=== PATIENT | female | born 1935 | race Caucasian/White ===

== ENCOUNTER 2016-06-06 08:51 | Inpatient (IN) | payer MEDICARE ==
[~2016-06-06] VITALS: Ht 157.5 cm; Wt 72.3 kg
[~2016-06-06 08:51] MED LIST: ATRV10T; FOLI1TAB7; HCTZ12.5T; LSNP20T; LVT.05T PO; ROSU5TAB; SIMVASTATIN; VYTORIN; lotrel
[2016-06-06] MEDS ORDERED: NS IV 500 ML 500 ML IV ONE (09:06)
[2016-06-06] MEDS ORDERED: fentaNYL INJECTION 100 MCG/2 ML AMP IVP STA (09:15)
[2016-06-06 09:20] LABS: BASOPHILS % (AUTO) 0 % (0-10); EOSINOPHILS % (AUTO) 0 % (0-10); LYMPHOCYTES # (AUTO) 0.8 X 10^3 (1.0-4.0); LYMPHOCYTES % (AUTO) 7 % (12-44); MEAN CORPUSCULAR HEMOGLOBIN 30 PG (25-34); MEAN CORPUSCULAR HGB CONC 34 G/DL (32-36); MEAN CORPUSCULAR VOLUME 90 FL (80-99); MEAN PLATELET VOLUME 9.3 FL (7.4-10.4); MONOCYTES # (AUTO) 0.5 X 10^3 (0.0-1.0); MONOCYTES % (AUTO) 5 % (0-12); NEUTROPHILS # (AUTO) 10.3 X 10^3 (1.8-7.8); NEUTROPHILS % (AUTO) 89 % (42-75); PLATELET COUNT 271 10^3/uL (130-400); RED CELL DISTRIBUTION WIDTH 14.3 % (10.0-14.5); WHITE BLOOD COUNT 11.5 10^3/uL (4.3-11.0)
[2016-06-06 09:40] LABS: ALBUMIN 4.3 G/DL (3.2-4.5); BILIRUBIN,TOTAL 0.6 MG/DL (0.1-1.0); CALCIUM 10.5 MG/DL (8.5-10.1); CREATININE SERUM 0.92 MG/DL (0.60-1.30); POTASSIUM 3.5 MMOL/L (3.6-5.0); TOTAL PROTEIN 7.4 G/DL (6.4-8.2); hs C REACTIVE PROTEIN 3.37 MG/DL (0.00-0.50)
--- NOTE | 2016-06-06 09:44 | ED Abdominal Pain ---
General Chief Complaint: Abdominal/GI Problems Stated Complaint: CONSTIPATION Nursing Triage Note: STATES HER LAST NORMAL BM WAS SUNDAY ET TOOK MILK OF MAG LAST NIGHT WITH NO RESULTS. HX OF BOWEL OBSTRUCTION. Sepsis Screen: No Definite Risk Source of Information: Patient Exam Limitations: No Limitations History of Present Illness Time Seen By Provider: 09:00 Initial Comments Here with report of overall abdominal pain and constipation. Reports last bowel movement was 2 days ago and was normal. Does have history of bowel obstruction and this has concerned her. She took milk of magnesia last night and that did not help. Today she has increasing abdominal discomfort and cramping without bowel movement. She vomited yesterday and this morning. Denies fever or chills. Denies breathing problems or other concerns. Timing/Duration: 2-3 Days Severity/Quality: Moderate, Cramping Location: Generalized Abdomen Radiation: No Radiation Modifying Factors: Worsens With Eating, Worsens With Movement, Improves With Resting Associated Symptoms: No Back Pain, No Chest Pain, No Fever/Chills, Nausea/ Vomiting, No Shortness of Air, No Weakness Allergies and Home Medications Allergies Coded Allergies: No Known Drug Allergies (Unverified , 05/22/06) Home Medications Folic Acid/Multivits-Min/Lut 1 Each Tab.chew, (Reported) Hydrochlorothiazide 12.5 Mg Capsule, (Reported) Levothyroxine Sodium 50 Mcg Tablet, (Reported) Lisinopril 20 Mg Tablet, (Reported) Rosuvastatin Calcium 5 Mg Tablet, (Reported) Review of Systems Constitutional: see HPI, No chills, No fever EENTM: No Symptoms Reported Respiratory: No Symptoms Reported Cardiovascular: No Symptoms Reported, Denies Chest Pain, Denies Edema Gastrointestinal: Abdominal Pain, Constipated, Nausea, Denies Rectal Bleeding, Vomiting Genitourinary: No Symptoms Reported, Denies Frequency, Denies Pain Musculoskeletal: no symptoms reported Skin: no symptoms reported Psychiatric/Neurological: No Symptoms Reported All Other Systems Reviewed Negative Unless Noted: Yes Past Wletqyh-Vrjqgf-Bueiav Hx Patient Social History Alcohol Use: Denies Use Recreational Drug Use: No Smoking Status: Never a Smoker Recent Foreign Travel: No Contact w/Someone Who Travel: No Recent Infectious Disease Expo: No Surgeries HX Surgeries: Yes Surgeries: Abdominal, Hysterectomy Respiratory Hx Respiratory Disorders: No Cardiovascular Hx Cardiac Disorders: Yes Cardiac Disorders: Hypertension Neurological Hx Neurological Disorders: No Reproductive System Hx Reproductive Disorders: No Sexually Transmitted Disease: No Genitourinary Hx Genitourinary Disorders: Yes Gastrointestinal Hx Gastrointestinal Disorders: Yes Gastrointestinal Disorders: Obstructive Bowel Musculoskeletal Hx Musculoskeletal Disorders: No Endocrine Hx Endocrine Disorders: Yes Endocrine Disorders: Hypothyroidsim HEENT HX ENT Disorders: No Psychosocial Hx Psychiatric Problems: No Blood Transfusions Hx Blood Disorders: No Reviewed Nursing Assessment Reviewed/Agree w Nursing PMH: Yes Family Medical History Significant Family History: No Pertinent Family Hx Physical Exam Vital Signs VS - Last 72 Hours, by Label 06/06/16 08:57 Temp 98.6 Pulse 92 Resp 16 B/P (MAP) 188/76 Pulse Ox 94 Capillary Refill : Less Than 3 Seconds General Appearance: WD/WN, no apparent distress HEENT: PERRL/EOMI, pharynx normal Neck: full range of motion, supple Respiratory: lungs clear, normal breath sounds Cardiovascular: normal peripheral pulses, regular rate, rhythm, no murmur Gastrointestinal: distended, No guarding, No rebound, tenderness (diffuse) Extremities: non-tender, normal inspection Back: normal inspection, no CVA tenderness, no vertebral tenderness Neurologic/Psychiatric: alert, oriented x 3 Skin: normal color, warm/dry Progress/Results/Core Measures Results/Orders Lab Results Laboratory Tests Test 06/06/16 09:13 06/06/16 10:05 Range/Units White Blood Count 11.5 H 4.3-11.0 10^3/uL Red Blood Count 5.10 4.35-5.85 10^6/uL Hemoglobin 15.5 11.5-16.0 G/DL Hematocrit 46 35-52 % Mean Corpuscular Volume 90 80-99 FL Mean Corpuscular Hemoglobin 30 25-34 PG Mean Corpuscular Hemoglobin Concent 34 32-36 G/DL Red Cell Distribution Width 14.3 10.0-14.5 % Platelet Count 271 130-400 10^3/uL Mean Platelet Volume 9.3 7.4-10.4 FL Neutrophils (%) (Auto) 89 H 42-75 % Lymphocytes (%) (Auto) 7 L 12-44 % Monocytes (%) (Auto) 5 0-12 % Eosinophils (%) (Auto) 0 0-10 % Basophils (%) (Auto) 0 0-10 % Neutrophils # (Auto) 10.3 H 1.8-7.8 X 10^3 Lymphocytes # (Auto) 0.8 L 1.0-4.0 X 10^3 Monocytes # (Auto) 0.5 0.0-1.0 X 10^3 Eosinophils # (Auto) 0.0 0.0-0.3 10^3/uL Basophils # (Auto) 0.0 0.0-0.1 10^3/uL Neutrophils % (Manual) 88 % Lymphocytes % (Manual) 8 % Monocytes % (Manual) 4 % Eosinophils % (Manual) 0 % Basophils % (Manual) 0 % Band Neutrophils 0 % Blood Morphology Comment NORMAL Sodium Level 138 135-145 MMOL/L Potassium Level 3.5 L 3.6-5.0 MMOL/L Chloride Level 95 L 98-107 MMOL/L Carbon Dioxide Level 30 21-32 MMOL/L Anion Gap 13 5-14 MMOL/L Blood Urea Nitrogen 19 H 7-18 MG/DL Creatinine 0.92 0.60-1.30 MG/DL Estimat Glomerular Filtration Rate 59 BUN/Creatinine Ratio 21 Glucose Level 160 H 70-105 MG/DL Calcium Level 10.5 H 8.5-10.1 MG/DL Total Bilirubin 0.6 0.1-1.0 MG/DL Aspartate Amino Transf (AST/SGOT) 19 5-34 U/L Alanine Aminotransferase (ALT/SGPT) 23 0-55 U/L Alkaline Phosphatase 49 40-136 U/L C-Reactive Protein High Sensitivity 3.37 H 0.00-0.50 MG/DL Total Protein 7.4 6.4-8.2 G/DL Albumin 4.3 3.2-4.5 G/DL Urine Color YELLOW Urine Clarity CLEAR Urine pH 7 5-9 Urine Specific [place] 1.010 L 1.016-1.022 Urine Protein 1+ H NEGATIVE Urine Glucose (UA) NEGATIVE NEGATIVE Urine Ketones NEGATIVE NEGATIVE Urine Nitrite NEGATIVE NEGATIVE Urine Bilirubin NEGATIVE NEGATIVE Urine Urobilinogen NORMAL NORMAL MG/DL Urine Leukocyte Esterase NEGATIVE NEGATIVE Urine RBC (Auto) NEGATIVE NEGATIVE Urine RBC NONE /HPF Urine WBC NONE /HPF Urine Crystals PRESENT H /LPF Urine Amorphous Sediment LARGE KATY PHOSPHATE H /LPF Urine Bacteria NEGATIVE /HPF Urine Casts NONE /LPF Urine Mucus NEGATIVE /LPF Urine Culture Indicated NO My Orders Orders - JOSEPHINE CALIXTO MD Cbc With Automated Diff (06/06/16 09:06) Comprehensive Metabolic Panel (06/06/16 09:06) Hs C Reactive Protein (06/06/16 09:06) Saline Lock/Iv-Start (06/06/16 09:06) Ns Iv 500 Ml (Sodium Chloride 0.9%) (06/06/16 09:06) Fentanyl Injection (Sublimaze Injection (06/06/16 09:15) Manual Differential (06/06/16 09:13) Ct Abdomen/Pelvis W (06/06/16 09:52) Ua Culture If Indicated (06/06/16 09:53) Iohexol Injection (Omnipaque 350 Mg/Ml 1 (06/06/16 10:15) Sodium Chloride Flush (Catheter Flush Sy (06/06/16 10:15) Medications Given in ED Current Medications Medications Dose Ordered Sig/Silvia Route Start Time Stop Time Status Last Admin Dose Admin Iohexol 100 ml ONCE ONCE IV 06/06/16 10:15 06/06/16 10:16 DC 06/06/16 10:13 100 ML Sodium Chloride 10 ml NEEDED PRN IV 06/06/16 10:15 06/06/16 10:13 10 ML Sodium Chloride 500 ml @ 0 mls/hr Q0M ONCE IV 06/06/16 09:06 06/06/16 09:07 DC 06/06/16 09:17 500 MLS/HR Vital Signs/I&O Vital Sign - Last 12Hours 06/06/16 08:57 Temp 98.6 Pulse 92 Resp 16 B/P (MAP) 188/76 Pulse Ox 94 Blood Pressure Mean: 113 Progress Note : Progress Note Seen and evaluated. IV, labs, normal saline [address] abdomen and pelvis. Patient does have history of diverticulitis as well. Patient didn't give fentanyl 50 g IV for pain. Normal saline complete. CT done. I did discuss the case with radiologist and she does appear to have a small bowel obstruction with transition point in the mid pelvis area. I did discuss the case with Dr. Singh at 1105. 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 I did discuss the case with Dr. Hill 1111 and he accepts patient for admission, inpatient status as primary. Patient informed and agrees with plan. Currently not vomiting so we will forego NG tube placement at this time but patient was informed that if vomiting occurs or persist, she will need this. She agrees. Diagnostic Imaging Diagonstic Imaging: CT Plain Films/CT/US/NM/MRI: abdomen, pelvis Comments Small bowel obstruction with transition point in the mid pelvis. Reviewed: Reviewed by Me, Discussed w/Radiologist Departure Communication Time/Spoke to Admitting Phy: 11:11 Time/Spoke to Consulting Physi: 11:05 Impression Impression: Primary Impression: Small bowel obstruction Disposition: ADMITTED INPATIENT Condition: Stable Decision to Admit Reason: Admit from ER (General) Decision to Admit/Date: June 06, 2016 Time/Decision to Admit Time: 11:05 Departure-Patient Inst. Referrals: RAINER HILL DO (PCP/Family) Primary Care Physician JOSEPHINE CALIXTO MD June 06, 2016 09:44
[2016-06-06 09:48] LABS: BAND NEUTROPHILS 0 %; BASOPHILS % (MANUAL) 0 %; EOSINOPHILS % (MANUAL) 0 %; LYMPHOCYTES % (MANUAL) 8 %; NEUTROPHILS % (MANUAL) 88 %
[2016-06-06] MEDS ORDERED: IOHEXOL 350 MG/ML 100 ML (OMNIPAQUE 350) VIAL IV ONE (10:15)
[2016-06-06] MEDS ORDERED: CATHETER FLUSH 10 ML SYR IV PRN ×2 (10:15→12:15)
[2016-06-06 10:17] LABS: BILIRUBIN,URINE NEGATIVE (NEGATIVE); KETONES,URINE NEGATIVE (NEGATIVE); LEUKOCYTE ESTERASE ,URINE NEGATIVE (NEGATIVE); NITRITE,URINE NEGATIVE (NEGATIVE); PH,URINE 7 (5-9); PROTEIN,URINE 1+ (NEGATIVE); UROBILINOGEN,URINE NORMAL (NORMAL)
--- NOTE | 2016-06-06 11:36 | Diagnostic Imaging Report ---
PROCEDURE: CT abdomen and pelvis with contrast. TECHNIQUE: Multiple contiguous axial images were obtained through the abdomen and pelvis after administration of intravenous contrast. INDICATION: Abdominal pain. Nausea and vomiting. CONTRAST: 100 mL of Omnipaque 350 is administered intravenously. FINDINGS: There are dilated bowel loops with air-fluid levels seen with transition point in the upper aspect of the pelvis into decompressed distal ileal loops, compatible with high grade small bowel obstruction. There is diverticulosis most prominent in the sigmoid colon with no evidence of diverticulitis. No significant free fluid is seen. There is a small amount of fluid density superior to the urinary bladder, could be within a bowel loop or representing a small fluid collection without an air-fluid level or thickened enhancing wall to suggest an abscess. The abdominal aorta is normal in caliber. No para-aortic significantly enlarged lymph node is seen. No pelvic lymphadenopathy is seen. There is a laxity of the abdominal wall and evidence of prior hernia repair with a mesh. There is a bulging from diastases of the recti and weakness of the abdominal wall anteriorly with no discrete hernia. The kidneys have symmetric enhancement and contrast excretion. There is no hydronephrosis. There is a simple appearing cyst in the left kidney measuring 5.4 cm in caliber. The right adrenal gland demonstrates a nodule measuring 2.8 x 1.4 cm similar to 2010 exam compatible with an adenoma. Minimal nodularity in the rest of the right adrenal nodule and the left adrenal nodule is also seen which also appears stable. There is no splenomegaly. The liver, the gallbladder, the pancreas appear unremarkable. The lung bases demonstrate no significant abnormality. Osseous structures demonstrate advanced degenerative changes. IMPRESSION: 1. High-grade distal small bowel obstruction. 2. Diverticulosis. No diverticulitis. 2. Minimal fluid density seen superior to the urinary bladder with no air-fluid level or wall thickening to suggest an abscess. The findings were discussed with Dr. Santillan by Dr. Healy at time of dictation. Dictated by: Dictated on workstation # [id number]
[2016-06-06 12:00] VITALS: BP 169/71
[2016-06-06] MEDS ORDERED: ONDANSETRON 4 MG/2 ML (SDV) Z0FRAN IV PRN (12:15)
[2016-06-06] MEDS: NS IV 1000 ML 1,000 ML IV SCH ×2 (12:17→23:03)
[2016-06-06] MEDS ORDERED: FA/M1TAB29 PO (13:07)
[2016-06-06] MEDS ORDERED: CHOL10007 PO (13:07)
[2016-06-06] MEDS ORDERED: TRIA15CR TP (13:07)
[2016-06-06] MEDS ORDERED: AMLO5TAB2 PO (13:07)
[2016-06-06] MEDS ORDERED: OMEG-109 PO (13:07)
[2016-06-06] MEDS ORDERED: ATOR10TA66 PO (13:07)
[2016-06-06] MEDS ORDERED: MAGN250T PO (13:07)
[2016-06-06] MEDS ORDERED: LISI1TAB8 PO (13:07)
--- NOTE | 2016-06-06 13:49 | Consultation ---
History of Present Illness History of Present Illness Patient Consulted On(jovana/time) 06/06/16 13:44 Date of Admission History of Present Illness This is an 80-year-old female patient who came into the ER this morning with abdominal pain. Patient reports that she had a good bowel movement Sunday evening but by Sunday night she started having pain to her abdomen. Patient reports that she felt constipated Sunday morning and passed some small really hard stool. She is complaining of soreness in her abdomen. She thinks it is due to straining on Sunday to pass stool. Patient reports that she forced herself to throw up on Sunday thinking that it will help the pain but it did not. Patient states ended up calling her brother and [id number] this morning to come and take her to the emergency room. Patient reports she has a history of 3 hernia repairs, the last one taken place in [id number]. Patient also reports that she has had a total hysterectomy in the past. Per ER report patient has a history of a bowel obstruction. Allergies and Home Medications Allergies Coded Allergies: No Known Drug Allergies (Unverified , 05/22/06) Home Medications Amlodipine Besylate 5 Mg Tablet, 5 MG PO DAILY, (Reported) Atorvastatin Calcium 10 Mg Tablet, 10 MG PO HS, (Reported) Cholecalciferol (Vitamin D3) 1,000 Unit Capsule, 1,000 UNIT PO DAILY, (Reported) Levothyroxine Sodium 50 Mcg Tablet, 50 MCG PO DAILY, (Reported) Lisinopril/Hydrochlorothiazide 1 Each Tablet, 1 TAB PO DAILY, (Reported) Magnesium 250 Mg Tablet, 250 MG PO DAILY, (Reported) Multivit-Min/FA/Lycopene/Lut 1 Each Tablet, 1 TAB PO DAILY, (Reported) [place]-3 Fatty Acids/Fish Oil 1 Each Capsule, 1,200 MG PO DAILY, (Reported) Triamcinolone Acetonide 15 Gm Cream..g., TP TID PRN for RASH, (Reported) Past Uyahrfz-Dthiyu-Stnuzs Hx Patient Social History Alcohol Use: Denies Use Recreational Drug Use: No Smoking Status: Never a Smoker Recent Foreign Travel: No Contact w/Someone Who Travel: No Recent Infectious Disease Expo: No Recent Hopitalizations: Yes Physical Abuse Screen: No Sexual Abuse: No Immunizations Up To Date PED Vaccines UTD: Yes Seasonal Allergies Seasonal Allergies: No Surgeries HX Surgeries: Yes Surgeries: Abdominal, Hysterectomy Respiratory Hx Respiratory Disorders: No Cardiovascular Hx Cardiac Disorders: Yes Cardiac Disorders: Hypertension Neurological Hx Neurological Disorders: No Reproductive System Hx Reproductive Disorders: No Sexually Transmitted Disease: No HIV/AIDS: No Female Reproductive Disorders: Denies Genitourinary Hx Genitourinary Disorders: Yes Gastrointestinal Hx Gastrointestinal Disorders: Yes Gastrointestinal Disorders: Obstructive Bowel, Diverticulosis Musculoskeletal Hx Musculoskeletal Disorders: No Endocrine Hx Endocrine Disorders: Yes Endocrine Disorders: Hypothyroidsim HEENT HX ENT Disorders: No HEENT Disorders: Cataract Loss of Vision: Denies Hearing Impairment: Denies Psychosocial Hx Psychiatric Problems: No Blood Transfusions Hx Blood Disorders: No Reviewed Nursing Assessment Reviewed/Agree w Nursing PMH: Yes Family Medical History Significant Family History: No Pertinent Family Hx Family Medial History: Abdominal aortic aneurysm 19 FATHER Arthritis G8 BROTHER Cataracts G8 BROTHER Coronary thrombosis 19 MOTHER Hypercholesterolemia G8 BROTHER Hypertension G8 BROTHER Review of Systems-General Constitutional: no symptoms reported EENTM: no symptoms reported Respiratory: no symptoms reported Cardiovascular: no symptoms reported Gastrointestinal: abdominal pain (generalized abd pain with soreness), constipation Genitourinary: no symptoms reported Musculoskeletal: no symptoms reported Skin: no symptoms reported Psychiatric/Neurological: No Symptoms Reported Physical Exam-General Problems Physical Exam Vital Signs Vital Sign - Last 12Hours 06/06/16 06/06/16 08:57 12:00 Temp 98.6 Pulse 92 Resp 16 B/P (MAP) 188/76 Pulse Ox 94 O2 Delivery Room Air Capillary Refill : Less Than 3 Seconds General Appearance: WD/WN, no apparent distress Neck: non-tender, full range of motion Respiratory: chest non-tender, no respiratory distress, no accessory muscle use Cardiovascular: regular rate, rhythm Gastrointestinal: tenderness Extremities: no pedal edema, no calf tenderness Neurologic/Psychiatric: alert, normal mood/affect, oriented x 3 Skin: normal color, warm/dry Data Review Labs Laboratory Tests Test 06/06/16 09:13 06/06/16 10:05 Range/Units White Blood Count 11.5 H 4.3-11.0 10^3/uL Red Blood Count 5.10 4.35-5.85 10^6/uL Hemoglobin 15.5 11.5-16.0 G/DL Hematocrit 46 35-52 % Mean Corpuscular Volume 90 80-99 FL Mean Corpuscular Hemoglobin 30 25-34 PG Mean Corpuscular Hemoglobin Concent 34 32-36 G/DL Red Cell Distribution Width 14.3 10.0-14.5 % Platelet Count 271 130-400 10^3/uL Mean Platelet Volume 9.3 7.4-10.4 FL Neutrophils (%) (Auto) 89 H 42-75 % Lymphocytes (%) (Auto) 7 L 12-44 % Monocytes (%) (Auto) 5 0-12 % Eosinophils (%) (Auto) 0 0-10 % Basophils (%) (Auto) 0 0-10 % Neutrophils # (Auto) 10.3 H 1.8-7.8 X 10^3 Lymphocytes # (Auto) 0.8 L 1.0-4.0 X 10^3 Monocytes # (Auto) 0.5 0.0-1.0 X 10^3 Eosinophils # (Auto) 0.0 0.0-0.3 10^3/uL Basophils # (Auto) 0.0 0.0-0.1 10^3/uL Neutrophils % (Manual) 88 % Lymphocytes % (Manual) 8 % Monocytes % (Manual) 4 % Eosinophils % (Manual) 0 % Basophils % (Manual) 0 % Band Neutrophils 0 % Blood Morphology Comment NORMAL Sodium Level 138 135-145 MMOL/L Potassium Level 3.5 L 3.6-5.0 MMOL/L Chloride Level 95 L 98-107 MMOL/L Carbon Dioxide Level 30 21-32 MMOL/L Anion Gap 13 5-14 MMOL/L Blood Urea Nitrogen 19 H 7-18 MG/DL Creatinine 0.92 0.60-1.30 MG/DL Estimat Glomerular Filtration Rate 59 BUN/Creatinine Ratio 21 Glucose Level 160 H 70-105 MG/DL Calcium Level 10.5 H 8.5-10.1 MG/DL Total Bilirubin 0.6 0.1-1.0 MG/DL Aspartate Amino Transf (AST/SGOT) 19 5-34 U/L Alanine Aminotransferase (ALT/SGPT) 23 0-55 U/L Alkaline Phosphatase 49 40-136 U/L C-Reactive Protein High Sensitivity 3.37 H 0.00-0.50 MG/DL Total Protein 7.4 6.4-8.2 G/DL Albumin 4.3 3.2-4.5 G/DL Urine Color YELLOW Urine Clarity CLEAR Urine pH 7 5-9 Urine Specific [place] 1.010 L 1.016-1.022 Urine Protein 1+ H NEGATIVE Urine Glucose (UA) NEGATIVE NEGATIVE Urine Ketones NEGATIVE NEGATIVE Urine Nitrite NEGATIVE NEGATIVE Urine Bilirubin NEGATIVE NEGATIVE Urine Urobilinogen NORMAL NORMAL MG/DL Urine Leukocyte Esterase NEGATIVE NEGATIVE Urine RBC (Auto) NEGATIVE NEGATIVE Urine RBC NONE /HPF Urine WBC NONE /HPF Urine Crystals PRESENT H /LPF Urine Amorphous Sediment LARGE [place] PHOSPHATE H /LPF Urine Bacteria NEGATIVE /HPF Urine Casts NONE /LPF Urine Mucus NEGATIVE /LPF Urine Culture Indicated NO Laboratory Tests 06/06/16 09:13: White Blood Count 11.5H, Red Blood Count 5.10, Hemoglobin 15.5, Hematocrit 46, Mean Corpuscular Volume 90, Mean Corpuscular Hemoglobin 30, Mean Corpuscular Hemoglobin Concent 34, Red Cell Distribution Width 14.3, Platelet Count 271, Mean Platelet Volume 9.3, Neutrophils (%) (Auto) 89H, Lymphocytes (%) (Auto) 7L , Monocytes (%) (Auto) 5, Eosinophils (%) (Auto) 0, Basophils (%) (Auto) 0, Neutrophils # (Auto) 10.3H, Lymphocytes # (Auto) 0.8L, Monocytes # (Auto) 0.5, Eosinophils # (Auto) 0.0, Basophils # (Auto) 0.0, Neutrophils % (Manual) 88, Lymphocytes % (Manual) 8, Monocytes % (Manual) 4, Eosinophils % (Manual) 0, Basophils % (Manual) 0, Band Neutrophils 0, Blood Morphology Comment NORMAL, Sodium Level 138, Potassium Level 3.5L, Chloride Level 95L, Carbon Dioxide Level 30, Anion Gap 13, Blood Urea Nitrogen 19H, Creatinine 0.92, Estimat Glomerular Filtration Rate 59, BUN/Creatinine Ratio 21, Glucose Level 160H, Calcium Level 10.5H, Total Bilirubin 0.6, Aspartate Amino Transf (AST/SGOT) 19, Alanine Aminotransferase (ALT/SGPT) 23, Alkaline Phosphatase 49, C-Reactive Protein High Sensitivity 3.37H, Total Protein 7.4, Albumin 4.3 06/06/16 10:05: Urine Color YELLOW, Urine Clarity CLEAR, Urine pH 7, Urine Specific [place] 1.010L, Urine Protein 1+H, Urine Glucose (UA) NEGATIVE, Urine Ketones NEGATIVE, Urine Nitrite NEGATIVE, Urine Bilirubin NEGATIVE, Urine Urobilinogen NORMAL, Urine Leukocyte Esterase NEGATIVE, Urine RBC (Auto) NEGATIVE, Urine RBC NONE, Urine WBC NONE, Urine Crystals PRESENTH, Urine Amorphous Sediment LARGE [place]ATY PHOSPHATEH, Urine Bacteria NEGATIVE, Urine Casts NONE, Urine Mucus NEGATIVE, Urine Culture Indicated NO Assessment/Plan Assessment/Plan Assessment/Plan Small Bowel obstruction. Bilat Lower quadrant ABD pain Patient will be NPO. NG tube to Low intermittent wall suction. We will continue to monitor vital sign and labs PT. Order Small bowel follow through for AM. Samantha- Patient with lower abdominal pain and distended. She has had nausea and an episode of emesis x 1. Not feeling well for about 2 days. Patient states abdominal pain is about 4/10 pain aching pain. Not passing any flatus. Nothing making things better and nothing making worse. Denies any fever sweats chills shortness of breath or chest pain. general laying in bed head ncat, eyes nonicteric nares patent mouth dry heart reg lungs nonlabored abdomen distended, some slight tenderness b/l lower quadrants, midline scar noted ext nontender assessment as above ng tube small bowel follow through tomorrow am npo iv hydration will follow Clinical Quality Measures DVT/VTE Risk/Contraindication: Risk Factor Score Per Nursin RFS Level Per Nursing on Admit: 3=High BUD WAN APRN June 06, 2016 13:49 JASWINDER SÁNCHEZ DO June 06, 2016 14:07
--- NOTE | 2016-06-06 14:40 | Physical Therapy Evaluation ---
PT Evaluation-General Medical Diagnosis Admission Date June 06, 2016 at 11:07 Medical Diagnosis: SBO Onset Date: June 06, 2016 Therapy Diagnosis Therapy Diagnosis: debility Height/Weight Height (Feet): 5 Height (Inches): 2.00 Weight (Pounds): 159 Weight (Ounces): 6.3 Precautions Precautions/Isolations: Standard Precautions Referral Physician: Juan Reason for Referral: Evaluation/Treatment Medical History Pertinent Medical History: HTN, Hypothroidism Additional Medical History previous SBO and hernia Current History to ER secondary to abdominal pain Reviewed History: Yes Social History Home: Single Level Current Living Status: Alone Prior/Core FIM Prior Level of Function Functional [place] Measure 0=Not Assessed/NA 4=Minimal Assistance 1=Total Assistance 5=Supervision or Setup 2=Maximal Assistance 6=Modified [place] 3=Moderate Assistance 7=Complete [place] Bed Mobility: 7 Transfers (B,C,W/C) (FIM): 7 Gait: 7 Locomotion: 7 PT Evaluation-Current Subjective Patient rates abdominal pain 8/10. Pain Numeric Pain Scale: 8 Location: Lower Location Body Site: Abdomen Pain Description: Pressure, Acute Objective Patient Orientation: Normal For Age Problem Solving: Good Attachments: IV ROM/Strength ROM Lower Extremities bilateral LE WFL Strenght Lower Extremities bilateral LE WFL Integumentary/Posture Integumentary refer to nursing notes Bowel Incontinence: No Bladder Incontinence: No Posture WNL Neuromuscular (Tone, Coordination, Reflexes) grossly intact Sensory Vision: Wears Glasses Hearing: Functional Sensation Right Lower Extremit: Impaired Sensation Left Lower Extremity: Impaired Transfers Functional [place] Measure 0=Not Assessed/NA 4=Minimal Assistance 1=Total Assistance 5=Supervision or Setup 2=Maximal Assistance 6=Modified [place] 3=Moderate Assistance 7=Complete [place] Transfers (B, C, W/C) (FIM): 7 Scootin Rollin Supine to/from Sit: 7 Sit to/from Stand: 7 Gait Mode of Locomotion: Walk Anticipated Mode of Locomotion: Walk Gait (FIM): 7 Distance (FIM): 3=150 ft Distance: 250' Gait Level of Assist: 7 Gait Assistive Device: None Comments/Gait Description safe and functional Balance Sitting Static: Normal Sitting Dynamic: Normal Standing Static: Normal Standing Dynamic: Normal Assessment/Needs 80 y.o. female, is currently at [facility] safely and does not require skilled PT at this time. Patient has been instructed to ambulate PRN in hallway. Nursing notified. Rehab Potential: Good PT Plan Treatment/Plan Treatment Plan: Discontinue PT Time/GCodes Time In: 1405 Time Out: 1420 Total Billed Treatment Time: 15 Total Billed Treatment 1 visit EVL 15 min G Codes Necessary: Yes PT/OT Therapy GCodes Therapy Functional Limitation: Physical Therapy Test(s)/Tool used to determine: Level of Assistance Scale Functional Limitation-Current Charge Code: MOBCUR Modifier: CH Functional Limitation-Goal Charge Code: MOBGOAL Modifier: CH Functional Limitation-D/C Charge Codes: MOBDC Modifier: CH KAJAL GRIMALDO PT June 06, 2016 14:39
[2016-06-06 16:14] VITALS: BP 153/67
[2016-06-06] MEDS: fentaNYL INJECTION 100 MCG/2 ML AMP IV PRN (16:55)
--- NOTE | 2016-06-06 18:30 | History & Physicial ---
History of Present Illness History of Present Illness Reason for visit/HPI complaint abdominal pain and distention and unable to have a bowel movement. Patient states in the morning she was okay. Sunday night something happen had pain in the lower abdomen. Sunday can go to the bathroom pain across the abdomen and abdomen distended. Patient did not pass any gas yesterday. Patient vomited allergic to medications denies. Surgeries 3 hernias complete hysterectomy. Family history denies asthma TB diabetes heart disease lung disease cancer. Head denies headache dizziness fainting. Heart NSR, chest pain shortness of breath history of high blood pressure and hyperlipidemia . Lungs denies asthma TB coughing congestion and wheezing Date of Admission June 06, 2016 at 11:07 I consulted on this patient on 06/06/16 18:24 Attending Physician Jose Hill DO Admitting Physician Jose Hill DO Consult Allergies and Home Medications Allergies Coded Allergies: No Known Drug Allergies (Unverified , 05/22/06) Home Medications Amlodipine Besylate 5 Mg Tablet, 5 MG PO DAILY, (Reported) Atorvastatin Calcium 10 Mg Tablet, 10 MG PO HS, (Reported) Cholecalciferol (Vitamin D3) 1,000 Unit Capsule, 1,000 UNIT PO DAILY, (Reported) Levothyroxine Sodium 50 Mcg Tablet, 50 MCG PO DAILY, (Reported) Lisinopril/Hydrochlorothiazide 1 Each Tablet, 1 TAB PO DAILY, (Reported) Magnesium 250 Mg Tablet, 250 MG PO DAILY, (Reported) Multivit-Min/FA/Lycopene/Lut 1 Each Tablet, 1 TAB PO DAILY, (Reported) [place]-3 Fatty Acids/Fish Oil 1 Each Capsule, 1,200 MG PO DAILY, (Reported) Triamcinolone Acetonide 15 Gm Cream..g., TP TID PRN for RASH, (Reported) Past [id number] Hx Patient Social History Marrital Status: Employed/Student: unemployed Alcohol Use: Denies Use Recreational Drug Use: No Smoking Status: Never a Smoker Physical Abuse Screen: No Sexual Abuse: No Recent Foreign Travel: No Contact w/other who traveled: No Recent Hopitalizations: Yes Recent Infectious Disease Expo: No Seasonal Allergies Seasonal Allergies: No Surgeries HX Surgeries: Yes Surgeries: Abdominal, Hysterectomy Respiratory Hx Respiratory Disorders: No Cardiovascular Hx Cardiovascular Disorders: Yes Cardiac Disorders: Hypertension Neurological Hx Neurological Disorders: No Reproductive System Hx Reproductive Disorders: No Sexually Transmitted Disease: No HIV/AIDS: No Female Reproductive Disorders: Denies Genitourinary Hx Genitourinary Disorders: Yes Gastrointestinal Hx Gastrointestinal Disorders: Yes Gastrointestinal Disorders: Obstructive Bowel, Diverticulosis Musculoskeletal Hx Musculoskeletal Disorders: No Endocrine Hx Endocrine Disorders: Yes Endocrine Disorders: Hypothyroidsim HEENT HX ENT Disorders: No HEENT Disorders: Cataract Loss of Vision: Denies Hearing Impairment: Denies Psychosocial Hx Psychiatric Problems: No Blood Transfusions Hx Blood Disorders: No Reviewed Nursing Assessment Reviewed/Agree w Nursing PMH: Yes Family Medical History Significant Family History: No Pertinent Family Hx Family Hx: Abdominal aortic aneurysm 19 FATHER Arthritis G8 BROTHER Cataracts G8 BROTHER Coronary thrombosis 19 MOTHER Hypercholesterolemia G8 BROTHER Hypertension G8 BROTHER Constitutional: no symptoms reported, other (abdominal pain and distention) EENTM: no symptoms reported Respiratory: no symptoms reported Cardiovascular: no symptoms reported Gastrointestinal: RLQ, LLQ, abdominal pain (RLQ), constipation Genitourinary: no symptoms reported Physical Exam Vital Signs Vital Sign - Last 12Hours 06/06/16 06/06/16 08:57 12:00 Temp 98.6 Pulse 92 Resp 16 B/P (MAP) 188/76 Pulse Ox 94 O2 Delivery Room Air Capillary Refill : Less Than 3 Seconds General Appearance: No Apparent Distress, WD/WN Eyes: Bilateral Eye Normal Inspection HEENT: Normal ENT Inspection Neck: Full Range of Motion, Normal Inspection Respiratory: Chest Non Tender, Lungs Clear, Normal Breath Sounds, No Accessory Muscle Use, No Respiratory Distress Cardiovascular: Regular Rate, Rhythm, No JVD Gastrointestinal: Abnormal Bowel Sounds, Distended, Guarding, Tenderness Assessment/Plan Assessment and Plan small bowel obstruction. Hypertension. Hyperlipidemia Problems: Clinical Quality Measures DVT/VTE Risk/Contraindication: Risk Factor Score Per Nursin RFS Level Per Nursing on Admit: 3=High JOSE HILL DO June 06, 2016 18:30
[2016-06-06 19:54] VITALS: BP 162/74
[2016-06-07 00:50] VITALS: BP 148/70
[2016-06-07 04:00] VITALS: BP 157/70
[2016-06-07 04:35] LABS: BASOPHILS % (AUTO) 0 % (0-10); EOSINOPHILS % (AUTO) 0 % (0-10); LYMPHOCYTES # (AUTO) 1.2 X 10^3 (1.0-4.0); LYMPHOCYTES % (AUTO) 14 % (12-44); MEAN CORPUSCULAR HEMOGLOBIN 30 PG (25-34); MEAN CORPUSCULAR HGB CONC 33 G/DL (32-36); MEAN CORPUSCULAR VOLUME 91 FL (80-99); MEAN PLATELET VOLUME 9.1 FL (7.4-10.4); MONOCYTES % (AUTO) 12 % (0-12); NEUTROPHILS % (AUTO) 74 % (42-75); PLATELET COUNT 222 10^3/uL (130-400); RED BLOOD COUNT 4.65 10^6/uL (4.35-5.85); RED CELL DISTRIBUTION WIDTH 14.4 % (10.0-14.5); WHITE BLOOD COUNT 8.1 10^3/uL (4.3-11.0)
[2016-06-07 05:01] LABS: ALANINE AMINOTRANSFERASE 21 U/L (0-55); ALBUMIN 3.7 G/DL (3.2-4.5); ANION GAP 12 MMOL/L (5-14); ASPARTATE AMINO TRANSFERASE 22 U/L (5-34); BILIRUBIN,TOTAL 0.7 MG/DL (0.1-1.0); BLOOD UREA NITROGEN 20 MG/DL (7-18); BUN/CREATININE RATIO 24; CALCIUM 9.3 MG/DL (8.5-10.1); CARBON DIOXIDE 28 MMOL/L (21-32); CHLORIDE 102 MMOL/L (98-107); CREATININE SERUM 0.83 MG/DL (0.60-1.30); GFR ESTIMATED > 60; GLUCOSE 121 MG/DL (70-105); POTASSIUM 3.4 MMOL/L (3.6-5.0); SODIUM 142 MMOL/L (135-145); TOTAL PROTEIN 6.3 G/DL (6.4-8.2)
[2016-06-07] MEDS ORDERED: POTASSIUM CL 10MEQ/50ML IVPB 50 ML IV ONE (07:45)
--- NOTE | 2016-06-07 07:46 | Progress Note (SOAP) ---
Subjective Subjective/Events-last exam patient feels a little better today. Hurting and abdomen is less. Patient states she passed a little gas this a.m. No bowel movements. Potassium 3.4. Small bowel obstruction. Hypokalemia. Afebrile. Did not hear bowel sounds this a.m. Abdomen is softer this a.m. than last night. Patient was not able to tolerate nasogastric tube last night Objective Exam Vital Signs Date Time Temp Pulse Resp B/P (MAP) Pulse Ox O2 Delivery O2 Flow Rate FiO2 06/07/16 04:00 99.9 76 18 157/70 92 Room Air 06/07/16 00:50 99.8 78 18 148/70 92 Room Air 06/06/16 19:54 99.6 82 20 162/74 94 Room Air 06/06/16 16:14 98.3 83 20 153/67 93 Room Air 06/06/16 12:00 99.1 78 18 169/71 93 Room Air 06/06/16 11:29 81 16 96 06/06/16 08:57 98.6 92 16 188/76 94 I & O 06/07/16 06:59 Intake Total 0 ml Output Total 0 ml Balance 0 ml Capillary Refill : Less Than 3 Seconds General Appearance: No Apparent Distress, WD/WN HEENT: Normal ENT Inspection Neck: Full Range of Motion, Normal Inspection Respiratory: Chest Non Tender, Lungs Clear, Normal Breath Sounds, No Accessory Muscle Use, No Respiratory Distress Cardiovascular: Regular Rate, Rhythm, No Murmur Gastrointestinal: abnormal bowel sounds, distended Results Lab Laboratory Tests 06/06/16 09:13 06/07/16 04:25 Laboratory Tests 06/06/16 09:13: White Blood Count 11.5H, Red Blood Count 5.10, Hemoglobin 15.5, Hematocrit 46, Mean Corpuscular Volume 90, Mean Corpuscular Hemoglobin 30, Mean Corpuscular Hemoglobin Concent 34, Red Cell Distribution Width 14.3, Platelet Count 271, Mean Platelet Volume 9.3, Neutrophils (%) (Auto) 89H, Lymphocytes (%) (Auto) 7L , Monocytes (%) (Auto) 5, Eosinophils (%) (Auto) 0, Basophils (%) (Auto) 0, Neutrophils # (Auto) 10.3H, Lymphocytes # (Auto) 0.8L, Monocytes # (Auto) 0.5, Eosinophils # (Auto) 0.0, Basophils # (Auto) 0.0, Neutrophils % (Manual) 88, Lymphocytes % (Manual) 8, Monocytes % (Manual) 4, Eosinophils % (Manual) 0, Basophils % (Manual) 0, Band Neutrophils 0, Blood Morphology Comment NORMAL, Sodium Level 138, Potassium Level 3.5L, Chloride Level 95L, Carbon Dioxide Level 30, Anion Gap 13, Blood Urea Nitrogen 19H, Creatinine 0.92, Estimat Glomerular Filtration Rate 59, BUN/Creatinine Ratio 21, Glucose Level 160H, Calcium Level 10.5H, Total Bilirubin 0.6, Aspartate Amino Transf (AST/SGOT) 19, Alanine Aminotransferase (ALT/SGPT) 23, Alkaline Phosphatase 49, C-Reactive Protein High Sensitivity 3.37H, Total Protein 7.4, Albumin 4.3 06/06/16 10:05: Urine Color YELLOW, Urine Clarity CLEAR, Urine pH 7, Urine Specific [place] 1.010L, Urine Protein 1+H, Urine Glucose (UA) NEGATIVE, Urine Ketones NEGATIVE, Urine Nitrite NEGATIVE, Urine Bilirubin NEGATIVE, Urine Urobilinogen NORMAL, Urine Leukocyte Esterase NEGATIVE, Urine RBC (Auto) NEGATIVE, Urine RBC NONE, Urine WBC NONE, Urine Crystals PRESENTH, Urine Amorphous Sediment LARGE KATY PHOSPHATEH, Urine Bacteria NEGATIVE, Urine Casts NONE, Urine Mucus NEGATIVE, Urine Culture Indicated NO 06/07/16 04:25: White Blood Count 8.1, Red Blood Count 4.65, Hemoglobin 14.1, Hematocrit 42, Mean Corpuscular Volume 91, Mean Corpuscular Hemoglobin 30, Mean Corpuscular Hemoglobin Concent 33, Red Cell Distribution Width 14.4, Platelet Count 222, Mean Platelet Volume 9.1, Neutrophils (%) (Auto) 74, Lymphocytes (%) (Auto) 14, Monocytes (%) (Auto) 12, Eosinophils (%) (Auto) 0, Basophils (%) (Auto) 0, Neutrophils # (Auto) 6.0, Lymphocytes # (Auto) 1.2, Monocytes # (Auto) 1.0, Eosinophils # (Auto) 0.0, Basophils # (Auto) 0.0, Sodium Level 142, Potassium Level 3.4L, Chloride Level 102, Carbon Dioxide Level 28, Anion Gap 12, Blood Urea Nitrogen 20H, Creatinine 0.83, Estimat Glomerular Filtration Rate > 60, BUN /Creatinine Ratio 24, Glucose Level 121H, Calcium Level 9.3, Total Bilirubin 0.7 , Aspartate Amino Transf (AST/SGOT) 22, Alanine Aminotransferase (ALT/SGPT) 21, Alkaline Phosphatase 46, Total Protein 6.3L, Albumin 3.7 Assessment/Plan Assessment/Plan Assess & Plan/Chief Complaint small bowel obstruction. Hypokalemia. Hypertension history. Hyperlipidemia Clinical Quality Measures DVT/VTE Risk/Contraindication: Risk Factor Score Per Nursin RFS Level Per Nursing on Admit: 3=High Contraindications-Pharm: Other *list below* RAINER HILL DO June 07, 2016 07:46
[2016-06-07 08:00] VITALS: BP 153/74
--- NOTE | 2016-06-07 08:56 | Progress Note ---
Subjective Subjective/Events-last exam Patient is resting in bed comfortably. Abdomen still distended but patient reports that it is better. She reports that she is passing gas. Objective Exam Vital Signs Date Time Temp Pulse Resp B/P (MAP) Pulse Ox O2 Delivery O2 Flow Rate FiO2 06/07/16 08:00 99.2 81 20 153/74 92 Room Air 06/07/16 04:00 99.9 76 18 157/70 92 Room Air 06/07/16 00:50 99.8 78 18 148/70 92 Room Air 06/06/16 19:54 99.6 82 20 162/74 94 Room Air 06/06/16 16:14 98.3 83 20 153/67 93 Room Air 06/06/16 12:00 99.1 78 18 169/71 93 Room Air 06/06/16 11:29 81 16 96 06/06/16 08:57 98.6 92 16 188/76 94 I & O 06/07/16 07:00 Intake Total 0 ml Output Total 0 ml Balance 0 ml Capillary Refill : Less Than 3 Seconds General Appearance: No Apparent Distress, WD/WN HEENT: Normal ENT Inspection Neck: Full Range of Motion, Normal Inspection Respiratory: Chest Non Tender, No Accessory Muscle Use, No Respiratory Distress Cardiovascular: Regular Rate, Rhythm Gastrointestinal: distended, tenderness (generalized soreness) Extremity: Non Tender, No Calf Tenderness, No Pedal Edema Neurologic/Psychiatric: Alert, Oriented x3, No Motor/Sensory Deficits Skin: Normal Color, Warm/Dry Results Lab Laboratory Tests Test 06/06/16 09:13 06/06/16 10:05 06/07/16 04:25 Range/Units White Blood Count 11.5 H 8.1 4.3-11.0 10^3/uL Red Blood Count 5.10 4.65 4.35-5.85 10^6/uL Hemoglobin 15.5 14.1 11.5-16.0 G/DL Hematocrit 46 42 35-52 % Mean Corpuscular Volume 90 91 80-99 FL Mean Corpuscular Hemoglobin 30 30 25-34 PG Mean Corpuscular Hemoglobin Concent 34 33 32-36 G/DL Red Cell Distribution Width 14.3 14.4 10.0-14.5 % Platelet Count 271 222 130-400 10^3/uL Mean Platelet Volume 9.3 9.1 7.4-10.4 FL Neutrophils (%) (Auto) 89 H 74 42-75 % Lymphocytes (%) (Auto) 7 L 14 12-44 % Monocytes (%) (Auto) 5 12 0-12 % Eosinophils (%) (Auto) 0 0 0-10 % Basophils (%) (Auto) 0 0 0-10 % Neutrophils # (Auto) 10.3 H 6.0 1.8-7.8 X 10^3 Lymphocytes # (Auto) 0.8 L 1.2 1.0-4.0 X 10^3 Monocytes # (Auto) 0.5 1.0 0.0-1.0 X 10^3 Eosinophils # (Auto) 0.0 0.0 0.0-0.3 10^3/uL Basophils # (Auto) 0.0 0.0 0.0-0.1 10^3/uL Neutrophils % (Manual) 88 % Lymphocytes % (Manual) 8 % Monocytes % (Manual) 4 % Eosinophils % (Manual) 0 % Basophils % (Manual) 0 % Band Neutrophils 0 % Blood Morphology Comment NORMAL Sodium Level 138 142 135-145 MMOL/L Potassium Level 3.5 L 3.4 L 3.6-5.0 MMOL/L Chloride Level 95 L 102 98-107 MMOL/L Carbon Dioxide Level 30 28 21-32 MMOL/L Anion Gap 13 12 5-14 MMOL/L Blood Urea Nitrogen 19 H 20 H 7-18 MG/DL Creatinine 0.92 0.83 0.60-1.30 MG/DL Estimat Glomerular Filtration Rate 59 > 60 BUN/Creatinine Ratio 21 24 Glucose Level 160 H 121 H 70-105 MG/DL Calcium Level 10.5 H 9.3 8.5-10.1 MG/DL Total Bilirubin 0.6 0.7 0.1-1.0 MG/DL Aspartate Amino Transf (AST/SGOT) 19 22 5-34 U/L Alanine Aminotransferase (ALT/SGPT) 23 21 0-55 U/L Alkaline Phosphatase 49 46 40-136 U/L C-Reactive Protein High Sensitivity 3.37 H 0.00-0.50 MG/DL Total Protein 7.4 6.3 L 6.4-8.2 G/DL Albumin 4.3 3.7 3.2-4.5 G/DL Urine Color YELLOW Urine Clarity CLEAR Urine pH 7 5-9 Urine Specific [place] 1.010 L 1.016-1.022 Urine Protein 1+ H NEGATIVE Urine Glucose (UA) NEGATIVE NEGATIVE Urine Ketones NEGATIVE NEGATIVE Urine Nitrite NEGATIVE NEGATIVE Urine Bilirubin NEGATIVE NEGATIVE Urine Urobilinogen NORMAL NORMAL MG/DL Urine Leukocyte Esterase NEGATIVE NEGATIVE Urine RBC (Auto) NEGATIVE NEGATIVE Urine RBC NONE /HPF Urine WBC NONE /HPF Urine Crystals PRESENT H /LPF Urine Amorphous Sediment LARGE KATY PHOSPHATE H /LPF Urine Bacteria NEGATIVE /HPF Urine Casts NONE /LPF Urine Mucus NEGATIVE /LPF Urine Culture Indicated NO Laboratory Tests 06/06/16 09:13: White Blood Count 11.5H, Red Blood Count 5.10, Hemoglobin 15.5, Hematocrit 46, Mean Corpuscular Volume 90, Mean Corpuscular Hemoglobin 30, Mean Corpuscular Hemoglobin Concent 34, Red Cell Distribution Width 14.3, Platelet Count 271, Mean Platelet Volume 9.3, Neutrophils (%) (Auto) 89H, Lymphocytes (%) (Auto) 7L , Monocytes (%) (Auto) 5, Eosinophils (%) (Auto) 0, Basophils (%) (Auto) 0, Neutrophils # (Auto) 10.3H, Lymphocytes # (Auto) 0.8L, Monocytes # (Auto) 0.5, Eosinophils # (Auto) 0.0, Basophils # (Auto) 0.0, Neutrophils % (Manual) 88, Lymphocytes % (Manual) 8, Monocytes % (Manual) 4, Eosinophils % (Manual) 0, Basophils % (Manual) 0, Band Neutrophils 0, Blood Morphology Comment NORMAL, Sodium Level 138, Potassium Level 3.5L, Chloride Level 95L, Carbon Dioxide Level 30, Anion Gap 13, Blood Urea Nitrogen 19H, Creatinine 0.92, Estimat Glomerular Filtration Rate 59, BUN/Creatinine Ratio 21, Glucose Level 160H, Calcium Level 10.5H, Total Bilirubin 0.6, Aspartate Amino Transf (AST/SGOT) 19, Alanine Aminotransferase (ALT/SGPT) 23, Alkaline Phosphatase 49, C-Reactive Protein High Sensitivity 3.37H, Total Protein 7.4, Albumin 4.3 06/06/16 10:05: Urine Color YELLOW, Urine Clarity CLEAR, Urine pH 7, Urine Specific [place] 1.010L, Urine Protein 1+H, Urine Glucose (UA) NEGATIVE, Urine Ketones NEGATIVE, Urine Nitrite NEGATIVE, Urine Bilirubin NEGATIVE, Urine Urobilinogen NORMAL, Urine Leukocyte Esterase NEGATIVE, Urine RBC (Auto) NEGATIVE, Urine RBC NONE, Urine WBC NONE, Urine Crystals PRESENTH, Urine Amorphous Sediment LARGE KATY PHOSPHATEH, Urine Bacteria NEGATIVE, Urine Casts NONE, Urine Mucus NEGATIVE, Urine Culture Indicated NO 06/07/16 04:25: White Blood Count 8.1, Red Blood Count 4.65, Hemoglobin 14.1, Hematocrit 42, Mean Corpuscular Volume 91, Mean Corpuscular Hemoglobin 30, Mean Corpuscular Hemoglobin Concent 33, Red Cell Distribution Width 14.4, Platelet Count 222, Mean Platelet Volume 9.1, Neutrophils (%) (Auto) 74, Lymphocytes (%) (Auto) 14, Monocytes (%) (Auto) 12, Eosinophils (%) (Auto) 0, Basophils (%) (Auto) 0, Neutrophils # (Auto) 6.0, Lymphocytes # (Auto) 1.2, Monocytes # (Auto) 1.0, Eosinophils # (Auto) 0.0, Basophils # (Auto) 0.0, Sodium Level 142, Potassium Level 3.4L, Chloride Level 102, Carbon Dioxide Level 28, Anion Gap 12, Blood Urea Nitrogen 20H, Creatinine 0.83, Estimat Glomerular Filtration Rate > 60, BUN /Creatinine Ratio 24, Glucose Level 121H, Calcium Level 9.3, Total Bilirubin 0.7 , Aspartate Amino Transf (AST/SGOT) 22, Alanine Aminotransferase (ALT/SGPT) 21, Alkaline Phosphatase 46, Total Protein 6.3L, Albumin 3.7 Assessment/Plan Assessment/Plan Assessment/Plan Small Bowel obstruction. Bilat Lower quadrant ABD pain Hypokalemia. Patient will be NPO. NG tube if nauseated. We will continue to monitor vital sign and labs PT. Order Small bowel follow this AM. Singh- Patient states feeling a little better today. Passed a small amount of flatus. No bm. Abdomen still distended. Pain slightly improved. Denies n/v fever sweats chills shortness of breath or chest pain. general no acute distress heart reg lungs nonlabored abdomen still distended some tenderness b/l lower quadrants ext nontender assessment as above refused ng tube yesterday small bowel follow through today continue conservative management Clinical Quality Measures DVT/VTE Risk/Contraindication: Risk Factor Score Per Nursin RFS Level Per Nursing on Admit: 3=High Contraindications-Pharm: Other *list below* BUD WAN APRN June 07, 2016 08:56 JASWINDER SINGH DO June 07, 2016 15:11
[2016-06-07] MEDS: NS IV 1000 ML 1,000 ML IV SCH ×2 (09:04→18:50)
[2016-06-07 12:00] VITALS: BP 159/70
[2016-06-07 16:00] VITALS: BP 166/86
[2016-06-07] MEDS ORDERED: DIATRIZOATE MEGLUM/SODIUM 37% 120 ML (GASTROGRAFIN) PO ONE (16:00)
[2016-06-07] MEDS: fentaNYL INJECTION 100 MCG/2 ML AMP IV PRN ×2 (18:14→21:41)
[2016-06-07 20:52] VITALS: BP 170/80
[2016-06-08] VITALS (7 sets, daily range): BP systolic 145–177; BP diastolic 68–84
[2016-06-08] MEDS: fentaNYL INJECTION 100 MCG/2 ML AMP IV PRN (02:46)
[2016-06-08 04:45] LABS: BASOPHILS % (AUTO) 0 % (0-10); EOSINOPHILS % (AUTO) 0 % (0-10); LYMPHOCYTES % (AUTO) 13 % (12-44); MEAN CORPUSCULAR HEMOGLOBIN 30 PG (25-34); MEAN CORPUSCULAR HGB CONC 33 G/DL (32-36); MEAN CORPUSCULAR VOLUME 91 FL (80-99); MEAN PLATELET VOLUME 9.1 FL (7.4-10.4); MONOCYTES # (AUTO) 0.8 X 10^3 (0.0-1.0); MONOCYTES % (AUTO) 11 % (0-12); NEUTROPHILS # (AUTO) 6.1 X 10^3 (1.8-7.8); NEUTROPHILS % (AUTO) 76 % (42-75); PLATELET COUNT 233 10^3/uL (130-400); RED BLOOD COUNT 4.65 10^6/uL (4.35-5.85); RED CELL DISTRIBUTION WIDTH 14.3 % (10.0-14.5); WHITE BLOOD COUNT 7.9 10^3/uL (4.3-11.0)
[2016-06-08] MEDS: NS IV 1000 ML 1,000 ML IV SCH ×2 (05:06→15:17)
[2016-06-08 05:07] LABS: ALANINE AMINOTRANSFERASE 19 U/L (0-55); ALBUMIN 3.8 G/DL (3.2-4.5); ANION GAP 12 MMOL/L (5-14); ASPARTATE AMINO TRANSFERASE 17 U/L (5-34); BILIRUBIN,TOTAL 0.6 MG/DL (0.1-1.0); BLOOD UREA NITROGEN 22 MG/DL (7-18); BUN/CREATININE RATIO 29; CARBON DIOXIDE 26 MMOL/L (21-32); CHLORIDE 107 MMOL/L (98-107); CREATININE SERUM 0.77 MG/DL (0.60-1.30); GFR ESTIMATED > 60; GLUCOSE 117 MG/DL (70-105); POTASSIUM 3.2 MMOL/L (3.6-5.0); SODIUM 145 MMOL/L (135-145); TOTAL PROTEIN 6.2 G/DL (6.4-8.2)
--- NOTE | 2016-06-08 07:37 | Progress Note (SOAP) ---
Subjective Subjective/Events-last exam small bowel obstruction. Hypertension. Patient had bowel movement this morning 2. Patient to get another x-ray of the abdomen this a.m. Patient put on antihypertensive medicine. Patient feeling better. Hypothyroid. Objective Exam Vital Signs Date Time Temp Pulse Resp B/P (MAP) Pulse Ox O2 Delivery O2 Flow Rate FiO2 06/08/16 04:00 98.8 77 17 173/84 94 Room Air 06/08/16 00:00 98.3 84 17 171/83 96 Room Air 06/07/16 20:52 99.3 84 20 170/80 94 Room Air 06/07/16 16:00 99.9 75 20 166/86 97 Room Air 06/07/16 12:00 97.2 81 20 159/70 93 Room Air 06/07/16 08:00 99.2 81 20 153/74 92 Room Air I & O 06/08/16 07:00 Intake Total 2050 ml Output Total 850 ml Balance 1200 ml Capillary Refill : Less Than 3 Seconds General Appearance: No Apparent Distress, WD/WN Neck: Full Range of Motion, Normal Inspection Respiratory: Chest Non Tender, Lungs Clear, Normal Breath Sounds, No Accessory Muscle Use, No Respiratory Distress Cardiovascular: Regular Rate, Rhythm, No Murmur Gastrointestinal: soft Results Lab Laboratory Tests 06/08/16 04:20 Laboratory Tests 06/08/16 04:20: White Blood Count 7.9, Red Blood Count 4.65, Hemoglobin 14.1, Hematocrit 43, Mean Corpuscular Volume 91, Mean Corpuscular Hemoglobin 30, Mean Corpuscular Hemoglobin Concent 33, Red Cell Distribution Width 14.3, Platelet Count 233, Mean Platelet Volume 9.1, Neutrophils (%) (Auto) 76H, Lymphocytes (%) (Auto) 13 , Monocytes (%) (Auto) 11, Eosinophils (%) (Auto) 0, Basophils (%) (Auto) 0, Neutrophils # (Auto) 6.1, Lymphocytes # (Auto) 1.0, Monocytes # (Auto) 0.8, Eosinophils # (Auto) 0.0, Basophils # (Auto) 0.0, Sodium Level 145, Potassium Level 3.2L, Chloride Level 107, Carbon Dioxide Level 26, Anion Gap 12, Blood Urea Nitrogen 22H, Creatinine 0.77, Estimat Glomerular Filtration Rate > 60, BUN /Creatinine Ratio 29, Glucose Level 117H, Calcium Level 9.0, Total Bilirubin 0.6 , Aspartate Amino Transf (AST/SGOT) 17, Alanine Aminotransferase (ALT/SGPT) 19, Alkaline Phosphatase 41, Total Protein 6.2L, Albumin 3.8 Assessment/Plan Assessment/Plan Assess & Plan/Chief Complaint small bowel obstruction. Hypokalemia. Hypertension history. Hyperlipidemia. . 06/08/16. Small bowel obstruction. Hypokalemia. Hypertension. Hyperlipidemia history Clinical Quality Measures DVT/VTE Risk/Contraindication: Risk Factor Score Per Nursin RFS Level Per Nursing on Admit: 3=High Contraindications-Pharm: Other *list below* RAINER HILL DO June 08, 2016 07:37
[2016-06-08] MEDS: LEVOTHYROXINE 50 MCG (LEVOTHROID) TAB PO SCH (08:07)
[2016-06-08] MEDS: amLODIPine 5 MG (NORVASC) TAB PO SCH (08:08)
[2016-06-08] MEDS: POTASSIUM CL 10MEQ/50ML IVPB 50 ML IV SCH ×2 (08:08→09:24)
--- NOTE | 2016-06-08 08:54 | Progress Note ---
Subjective Subjective/Events-last exam Patient sitting up in bed. Even respirations. Patient reports that she have been passing several stools. Pt is alert and oriented x 3. Objective Exam Vital Signs Date Time Temp Pulse Resp B/P (MAP) Pulse Ox O2 Delivery O2 Flow Rate FiO2 06/08/16 04:00 98.8 77 17 173/84 94 Room Air 06/08/16 00:00 98.3 84 17 171/83 96 Room Air 06/07/16 20:52 99.3 84 20 170/80 94 Room Air 06/07/16 16:00 99.9 75 20 166/86 97 Room Air 06/07/16 12:00 97.2 81 20 159/70 93 Room Air I & O 06/08/16 07:00 Intake Total 2050 ml Output Total 850 ml Balance 1200 ml Capillary Refill : Less Than 3 Seconds General Appearance: No Apparent Distress, WD/WN HEENT: Normal ENT Inspection Neck: Full Range of Motion, Normal Inspection Respiratory: Chest Non Tender, No Accessory Muscle Use, No Respiratory Distress Cardiovascular: Regular Rate, Rhythm Gastrointestinal: non tender, soft, no pulsatile mass Extremity: Non Tender, No Calf Tenderness, No Pedal Edema Neurologic/Psychiatric: Alert, Oriented x3, No Motor/Sensory Deficits Skin: Normal Color, Warm/Dry Results Lab Laboratory Tests Test 06/06/16 09:13 06/06/16 10:05 06/07/16 04:25 06/08/16 04:20 Range/Units White Blood Count 11.5 H 8.1 7.9 4.3-11.0 10^3/uL Red Blood Count 5.10 4.65 4.65 4.35-5.85 10^6/uL Hemoglobin 15.5 14.1 14.1 11.5-16.0 G/DL Hematocrit 46 42 43 35-52 % Mean Corpuscular Volume 90 91 91 80-99 FL Mean Corpuscular Hemoglobin 30 30 30 25-34 PG Mean Corpuscular Hemoglobin Concent 34 33 33 32-36 G/DL Red Cell Distribution Width 14.3 14.4 14.3 10.0-14.5 % Platelet Count 271 222 233 130-400 10^3/uL Mean Platelet Volume 9.3 9.1 9.1 7.4-10.4 FL Neutrophils (%) (Auto) 89 H 74 76 H 42-75 % Lymphocytes (%) (Auto) 7 L 14 13 12-44 % Monocytes (%) (Auto) 5 12 11 0-12 % Eosinophils (%) (Auto) 0 0 0 0-10 % Basophils (%) (Auto) 0 0 0 0-10 % Neutrophils # (Auto) 10.3 H 6.0 6.1 1.8-7.8 X 10^3 Lymphocytes # (Auto) 0.8 L 1.2 1.0 1.0-4.0 X 10^3 Monocytes # (Auto) 0.5 1.0 0.8 0.0-1.0 X 10^3 Eosinophils # (Auto) 0.0 0.0 0.0 0.0-0.3 10^3/uL Basophils # (Auto) 0.0 0.0 0.0 0.0-0.1 10^3/uL Neutrophils % (Manual) 88 % Lymphocytes % (Manual) 8 % Monocytes % (Manual) 4 % Eosinophils % (Manual) 0 % Basophils % (Manual) 0 % Band Neutrophils 0 % Blood Morphology Comment NORMAL Sodium Level 138 142 145 135-145 MMOL/L Potassium Level 3.5 L 3.4 L 3.2 L 3.6-5.0 MMOL/L Chloride Level 95 L 102 107 98-107 MMOL/L Carbon Dioxide Level 30 28 26 21-32 MMOL/L Anion Gap 13 12 12 5-14 MMOL/L Blood Urea Nitrogen 19 H 20 H 22 H 7-18 MG/DL Creatinine 0.92 0.83 0.77 0.60-1.30 MG/DL Estimat Glomerular Filtration Rate 59 > 60 > 60 BUN/Creatinine Ratio 21 24 29 Glucose Level 160 H 121 H 117 H 70-105 MG/DL Calcium Level 10.5 H 9.3 9.0 8.5-10.1 MG/DL Total Bilirubin 0.6 0.7 0.6 0.1-1.0 MG/DL Aspartate Amino Transf (AST/SGOT) 19 22 17 5-34 U/L Alanine Aminotransferase (ALT/SGPT) 23 21 19 0-55 U/L Alkaline Phosphatase 49 46 41 40-136 U/L C-Reactive Protein High Sensitivity 3.37 H 0.00-0.50 MG/DL Total Protein 7.4 6.3 L 6.2 L 6.4-8.2 G/DL Albumin 4.3 3.7 3.8 3.2-4.5 G/DL Urine Color YELLOW Urine Clarity CLEAR Urine pH 7 5-9 Urine Specific [place] 1.010 L 1.016-1.022 Urine Protein 1+ H NEGATIVE Urine Glucose (UA) NEGATIVE NEGATIVE Urine Ketones NEGATIVE NEGATIVE Urine Nitrite NEGATIVE NEGATIVE Urine Bilirubin NEGATIVE NEGATIVE Urine Urobilinogen NORMAL NORMAL MG/DL Urine Leukocyte Esterase NEGATIVE NEGATIVE Urine RBC (Auto) NEGATIVE NEGATIVE Urine RBC NONE /HPF Urine WBC NONE /HPF Urine Crystals PRESENT H /LPF Urine Amorphous Sediment LARGE KATY PHOSPHATE H /LPF Urine Bacteria NEGATIVE /HPF Urine Casts NONE /LPF Urine Mucus NEGATIVE /LPF Urine Culture Indicated NO Laboratory Tests 06/08/16 04:20: White Blood Count 7.9, Red Blood Count 4.65, Hemoglobin 14.1, Hematocrit 43, Mean Corpuscular Volume 91, Mean Corpuscular Hemoglobin 30, Mean Corpuscular Hemoglobin Concent 33, Red Cell Distribution Width 14.3, Platelet Count 233, Mean Platelet Volume 9.1, Neutrophils (%) (Auto) 76H, Lymphocytes (%) (Auto) 13 , Monocytes (%) (Auto) 11, Eosinophils (%) (Auto) 0, Basophils (%) (Auto) 0, Neutrophils # (Auto) 6.1, Lymphocytes # (Auto) 1.0, Monocytes # (Auto) 0.8, Eosinophils # (Auto) 0.0, Basophils # (Auto) 0.0, Sodium Level 145, Potassium Level 3.2L, Chloride Level 107, Carbon Dioxide Level 26, Anion Gap 12, Blood Urea Nitrogen 22H, Creatinine 0.77, Estimat Glomerular Filtration Rate > 60, BUN /Creatinine Ratio 29, Glucose Level 117H, Calcium Level 9.0, Total Bilirubin 0.6 , Aspartate Amino Transf (AST/SGOT) 17, Alanine Aminotransferase (ALT/SGPT) 19, Alkaline Phosphatase 41, Total Protein 6.2L, Albumin 3.8 Assessment/Plan Assessment/Plan Assessment/Plan Small Bowel obstruction. Bilat Lower quadrant ABD pain Hypokalemia Will start patient on sips of clears. We will continue to monitor patient. Will advance diet if clear liquid is tolerated. Singh- Patient feeling better. Passing flatus and had some bowel movements. Patient small bowel follow through consistent with partial small bowel obstruction No new complaints. No nausea or emesis. general no acute distress heart reg lungs nonlabored abdomen less distended, no significant tenderness ext nontender assessment as above start clears likely advance diet tomorrow if continues to tolerate. Clinical Quality Measures DVT/VTE Risk/Contraindication: Risk Factor Score Per Nursin RFS Level Per Nursing on Admit: 3=High Contraindications-Pharm: Other *list below* BUD WAN APRN June 08, 2016 08:54 JASWINDER SINGH DO June 08, 2016 14:23
--- NOTE | 2016-06-08 08:58 | Diagnostic Imaging Report ---
EXAMINATION: Gastrografin small bowel follow through. INDICATION: Small bowel obstruction. TECHNIQUE: A engineer conductor image of the abdomen was performed. Subsequently, the patient was given Gastrografin orally and serial images of the abdomen were obtained. FINDINGS: The engineer conductor image of the abdomen demonstrates a small amount of fecal material. There are dilated small bowel loops. There is prompt gastric emptying into the proximal jejunal loops which appear dilated. There is slow progression of contrast through the small bowel with no contrast seen in the colon at 7 hours. At 18 hours, there is contrast in the colon and rectum with still incomplete evacuation of contrast from the proximal small bowel loops. No significant fold thickening or filling defect is identified. IMPRESSION: Findings are compatible with partial small bowel obstruction. Dictated by: Dictated on workstation # [id number]
[2016-06-08] MEDS ORDERED: ATORVASTATIN 10 MG (LIPITOR) TABLET PO SCH (21:00)
[2016-06-09] MEDS: NS IV 1000 ML 1,000 ML IV SCH ×2 (01:39→12:01)
[2016-06-09 03:45] VITALS: BP 168/72
[2016-06-09 04:28] LABS: BASOPHILS % (AUTO) 0 % (0-10); EOSINOPHILS # (AUTO) 0.1 10^3/uL (0.0-0.3); EOSINOPHILS % (AUTO) 1 % (0-10); LYMPHOCYTES % (AUTO) 27 % (12-44); MEAN CORPUSCULAR HEMOGLOBIN 31 PG (25-34); MEAN CORPUSCULAR HGB CONC 33 G/DL (32-36); MEAN CORPUSCULAR VOLUME 92 FL (80-99); MEAN PLATELET VOLUME 8.9 FL (7.4-10.4); MONOCYTES # (AUTO) 0.8 X 10^3 (0.0-1.0); MONOCYTES % (AUTO) 11 % (0-12); NEUTROPHILS # (AUTO) 4.6 X 10^3 (1.8-7.8); NEUTROPHILS % (AUTO) 62 % (42-75); PLATELET COUNT 216 10^3/uL (130-400); RED BLOOD COUNT 4.06 10^6/uL (4.35-5.85); WHITE BLOOD COUNT 7.5 10^3/uL (4.3-11.0)
[2016-06-09 04:49] LABS: ANION GAP 8 MMOL/L (5-14); BLOOD UREA NITROGEN 14 MG/DL (7-18); BUN/CREATININE RATIO 20; CARBON DIOXIDE 24 MMOL/L (21-32); CHLORIDE 109 MMOL/L (98-107); GFR ESTIMATED > 60; GLUCOSE 89 MG/DL (70-105); POTASSIUM 2.8 MMOL/L (3.6-5.0); SODIUM 141 MMOL/L (135-145)
[2016-06-09] MEDS: LEVOTHYROXINE 50 MCG (LEVOTHROID) TAB PO SCH (06:23)
[2016-06-09] MEDS ORDERED: POTASSIUM CL 10MEQ/50ML IVPB 50 ML IV SCH (07:30)
--- NOTE | 2016-06-09 07:39 | Progress Note (SOAP) ---
Subjective Subjective/Events-last exam Small bowel obstruction. Hypertension. Patient's legs has slight swelling. Patient passing gas this morning. Patient's abdomen still has some distention. Bowel gas decreased. Patient doing better Objective Exam Vital Signs Date Time Temp Pulse Resp B/P (MAP) Pulse Ox O2 Delivery O2 Flow Rate FiO2 06/09/16 03:45 98.3 65 18 168/72 95 Room Air 06/08/16 23:56 98.7 70 16 158/68 98 Room Air 06/08/16 20:53 98.2 69 20 145/71 97 Room Air 06/08/16 16:31 98.1 72 18 177/81 96 Room Air 06/08/16 12:00 98.2 73 18 146/71 96 Room Air 06/08/16 08:00 97.9 83 20 154/78 95 Room Air I & O 06/09/16 07:00 Intake Total 3570 ml Output Total 450 ml Balance 3120 ml Capillary Refill : Less Than 3 Seconds General Appearance: No Apparent Distress, WD/WN HEENT: Normal ENT Inspection Neck: Full Range of Motion, Normal Inspection Respiratory: Chest Non Tender, Lungs Clear, Normal Breath Sounds, No Accessory Muscle Use, No Respiratory Distress Cardiovascular: Regular Rate, Rhythm, No Murmur Gastrointestinal: soft, abnormal bowel sounds, distended Results Lab Laboratory Tests 06/09/16 04:10 Laboratory Tests 06/09/16 04:10: White Blood Count 7.5, Red Blood Count 4.06L, Hemoglobin 12.4, Hematocrit 37, Mean Corpuscular Volume 92, Mean Corpuscular Hemoglobin 31, Mean Corpuscular Hemoglobin Concent 33, Red Cell Distribution Width 14.0, Platelet Count 216, Mean Platelet Volume 8.9, Neutrophils (%) (Auto) 62, Lymphocytes (%) (Auto) 27, Monocytes (%) (Auto) 11, Eosinophils (%) (Auto) 1, Basophils (%) (Auto) 0, Neutrophils # (Auto) 4.6, Lymphocytes # (Auto) 2.0, Monocytes # (Auto) 0.8, Eosinophils # (Auto) 0.1, Basophils # (Auto) 0.0, Sodium Level 141, Potassium Level 2.8L, Chloride Level 109H, Carbon Dioxide Level 24, Anion Gap 8, Blood Urea Nitrogen 14, Creatinine 0.70, Estimat Glomerular Filtration Rate > 60, BUN/ Creatinine Ratio 20, Glucose Level 89, Calcium Level 8.0L Assessment/Plan Assessment/Plan Assess & Plan/Chief Complaint small bowel obstruction. Hypokalemia. Hypertension history. Hyperlipidemia. . 06/08/16. Small bowel obstruction. Hypokalemia. Hypertension. Hyperlipidemia history. . 06/09/16. Partial small bowel obstruction. Hypokalemia. Hypertension. Hyperlipidemia history. Patient on liquids and feeling better. Patient states she's passing gas. Bowel sounds sounds decreased with less distention Clinical Quality Measures DVT/VTE Risk/Contraindication: Risk Factor Score Per Nursin RFS Level Per Nursing on Admit: 3=High Contraindications-Pharm: Other *list below* RAINER HILL DO June 09, 2016 07:39
[2016-06-09] MEDS ORDERED: KCL 10 MEQ TAB (MICRO K) PO NR (07:45)
[2016-06-09] MEDS: amLODIPine 5 MG (NORVASC) TAB PO SCH (08:14)
[2016-06-09 08:24] VITALS: BP 160/71
--- NOTE | 2016-06-09 08:28 | Progress Note ---
Subjective Subjective/Events-last exam Patient seating up in bed. Even respirations. No distress. Patient passing stool and flatus. Objective Exam Vital Signs Date Time Temp Pulse Resp B/P (MAP) Pulse Ox O2 Delivery O2 Flow Rate FiO2 06/09/16 03:45 98.3 65 18 168/72 95 Room Air 06/08/16 23:56 98.7 70 16 158/68 98 Room Air 06/08/16 20:53 98.2 69 20 145/71 97 Room Air 06/08/16 16:31 98.1 72 18 177/81 96 Room Air 06/08/16 12:00 98.2 73 18 146/71 96 Room Air I & O 06/09/16 07:00 Intake Total 3570 ml Output Total 450 ml Balance 3120 ml Capillary Refill : Less Than 3 Seconds General Appearance: No Apparent Distress, WD/WN HEENT: Normal ENT Inspection Neck: Full Range of Motion, Normal Inspection Respiratory: Chest Non Tender, No Accessory Muscle Use, No Respiratory Distress Cardiovascular: Regular Rate, Rhythm, No Murmur Gastrointestinal: non tender, soft Extremity: Non Tender, No Calf Tenderness, No Pedal Edema Neurologic/Psychiatric: Alert, Oriented x3, No Motor/Sensory Deficits Skin: Normal Color, Warm/Dry Results Lab Laboratory Tests Test 06/08/16 04:20 06/09/16 04:10 Range/Units White Blood Count 7.9 7.5 4.3-11.0 10^3/uL Red Blood Count 4.65 4.06 L 4.35-5.85 10^6/uL Hemoglobin 14.1 12.4 11.5-16.0 G/DL Hematocrit 43 37 35-52 % Mean Corpuscular Volume 91 92 80-99 FL Mean Corpuscular Hemoglobin 30 31 25-34 PG Mean Corpuscular Hemoglobin Concent 33 33 32-36 G/DL Red Cell Distribution Width 14.3 14.0 10.0-14.5 % Platelet Count 233 216 130-400 10^3/uL Mean Platelet Volume 9.1 8.9 7.4-10.4 FL Neutrophils (%) (Auto) 76 H 62 42-75 % Lymphocytes (%) (Auto) 13 27 12-44 % Monocytes (%) (Auto) 11 11 0-12 % Eosinophils (%) (Auto) 0 1 0-10 % Basophils (%) (Auto) 0 0 0-10 % Neutrophils # (Auto) 6.1 4.6 1.8-7.8 X 10^3 Lymphocytes # (Auto) 1.0 2.0 1.0-4.0 X 10^3 Monocytes # (Auto) 0.8 0.8 0.0-1.0 X 10^3 Eosinophils # (Auto) 0.0 0.1 0.0-0.3 10^3/uL Basophils # (Auto) 0.0 0.0 0.0-0.1 10^3/uL Sodium Level 145 141 135-145 MMOL/L Potassium Level 3.2 L 2.8 L 3.6-5.0 MMOL/L Chloride Level 107 109 H 98-107 MMOL/L Carbon Dioxide Level 26 24 21-32 MMOL/L Anion Gap 12 8 5-14 MMOL/L Blood Urea Nitrogen 22 H 14 7-18 MG/DL Creatinine 0.77 0.70 0.60-1.30 MG/DL Estimat Glomerular Filtration Rate > 60 > 60 BUN/Creatinine Ratio 29 20 Glucose Level 117 H 89 70-105 MG/DL Calcium Level 9.0 8.0 L 8.5-10.1 MG/DL Total Bilirubin 0.6 0.1-1.0 MG/DL Aspartate Amino Transf (AST/SGOT) 17 5-34 U/L Alanine Aminotransferase (ALT/SGPT) 19 0-55 U/L Alkaline Phosphatase 41 40-136 U/L Total Protein 6.2 L 6.4-8.2 G/DL Albumin 3.8 3.2-4.5 G/DL Laboratory Tests 06/09/16 04:10: White Blood Count 7.5, Red Blood Count 4.06L, Hemoglobin 12.4, Hematocrit 37, Mean Corpuscular Volume 92, Mean Corpuscular Hemoglobin 31, Mean Corpuscular Hemoglobin Concent 33, Red Cell Distribution Width 14.0, Platelet Count 216, Mean Platelet Volume 8.9, Neutrophils (%) (Auto) 62, Lymphocytes (%) (Auto) 27, Monocytes (%) (Auto) 11, Eosinophils (%) (Auto) 1, Basophils (%) (Auto) 0, Neutrophils # (Auto) 4.6, Lymphocytes # (Auto) 2.0, Monocytes # (Auto) 0.8, Eosinophils # (Auto) 0.1, Basophils # (Auto) 0.0, Sodium Level 141, Potassium Level 2.8L, Chloride Level 109H, Carbon Dioxide Level 24, Anion Gap 8, Blood Urea Nitrogen 14, Creatinine 0.70, Estimat Glomerular Filtration Rate > 60, BUN/ Creatinine Ratio 20, Glucose Level 89, Calcium Level 8.0L Assessment/Plan Assessment/Plan Assessment/Plan Small Bowel obstruction. Bilat Lower quadrant ABD pain Hypokalemia Will advance patient to soft diet. We will continue to monitor patient. Will advance diet if current diet is tolerated Samantha- patient feeling better. Had multiple bm and passing flatus. Tolerating liquids. Denies n/v fever sweats chills shortness of breath or chest pain. general no acute heart reg lungs nonlabored abdomen soft nondistended no guarding or rebounding on palpation no pain ext nontender assessment as above advance diet as tolerates if tolerates could likely dc home no surgical intervention discussed possibility of recurrence patient understands. Clinical Quality Measures DVT/VTE Risk/Contraindication: Risk Factor Score Per Nursin RFS Level Per Nursing on Admit: 3=High Contraindications-Pharm: Other *list below* BUD WAN APRN June 09, 2016 08:28 JASWINDER SÁNCHEZ DO June 09, 2016 14:42
--- NOTE | 2016-06-09 08:47 | Discharge Inst-Simple/Standard ---
Discharge Inst-Standard Patient Instructions/Follow Up Plan of Care/Instructions/FU: Follow up with Dr. Singh in 2 weeks Follow up with PCP in one week Continue with soft diet for 2-3 days and advance diet as tolerated. Activity as Tolerated: Yes Discharge Diet: Soft Diet Planned Outpatient Orders/Ref. Pneu Vac Indicated: Yes BUD WAN APRN June 09, 2016 08:47
--- NOTE | 2016-06-09 10:34 | Diagnostic Imaging Report ---
EXAMINATION: Abdomen flat and upright. INDICATION: Small bowel obstruction. The prior small bowel exam of 06/07/16 did suggest a partial small bowel obstruction. On this study there are still a few distended segments of small bowel present as well as numerous air-fluid levels on the erect film. The dilated segments of small bowel in the left upper abdomen however are somewhat less conspicuous than on the prior study. There is still a fair amount of gas and contrast within the colon as well. There are numerous diverticula in the sigmoid colon. There are a few oval radiopaque densities overlying the upper abdomen and the left lower quadrant. These may be secondary to ingested medication. There is no mass or organomegaly appreciated. The osseous structures are intact. 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 IMPRESSION: The appearance of the bowel gas pattern has improved slightly since the prior exam as the segments of small bowel in the left upper quadrant are not quite as distended as on the prior exam. A followup study would be recommended for continued evaluation. Dictated by: Dictated on workstation # [id number]
[2016-06-09 12:12] VITALS: BP 160/71
== END 2016-06-09 12:12 | disposition home or self-care (01) | DRG 390 ==
LOC: EDUNIT# 08:51 → ER 08:53 → 4TH 11:07
PROVIDERS: ADMIT Family Medicine; ATTEND Family Medicine
PROC: 0D9670Z Drainage of Stomach with Drainage Device, Via Natural or Artificial Opening (ICD-10-PCS; principal; 2016-06-06)
DX: K56.69 Other intestinal obstruction (principal); K57.90 Diverticulosis of intestine, part unspecified, without perforation or abscess without bleeding; I10 Essential (primary) hypertension; E03.9 Hypothyroidism, unspecified; E78.5 Hyperlipidemia, unspecified; E87.6 Hypokalemia
CPT/HCPCS: 36415; 74020; 74177; 74250; 80048; 80053; 81000; 85007; 85025; 85027; 86141; 96361; 96374

== ENCOUNTER → 2017-10-16 | Outpatient (CLI) | payer MEDICARE ==
[~2017-10-16] MED LIST changes: +AMLO5TAB7 PO; +ATOR10TA66 PO; +CHOL10007 PO; +FA/M1TAB29 PO; +LISI1TAB8 PO; +MAGN250T2 PO; +OMEG-109 PO; +TRIA15CR TP
== END ==
LOC: LAB 10:24
PROVIDERS: ATTEND Family Medicine
DX: N28.9 Disorder of kidney and ureter, unspecified (principal)
CPT/HCPCS: 36415; 82565; 84520

== ENCOUNTER → 2017-10-17 | Outpatient (CLI) | payer MEDICARE ==
[~2017-10-17] MED LIST changes: +IOHEXOL 350 MG/ML 100 ML (OMNIPAQUE 350) VIAL IV ONE; +NS 250 ML (IVPB) BAG IV ONE
--- NOTE | 2017-10-17 11:41 | Diagnostic Imaging Report ---
PROCEDURE: CT abdomen and pelvis with contrast. TECHNIQUE: Multiple contiguous axial images were obtained through the abdomen and pelvis after administration of intravenous contrast. INDICATION: Left-sided abdominal pain and dysuria. Comparison is made with prior CT from 06/06/2016. The lung bases are clear. The liver demonstrates diffuse low density consistent with hepatic steatosis. No discrete liver mass is identified. The gallbladder is unremarkable. No biliary ductal dilatation is seen. The pancreas and spleen are unremarkable. No adrenal mass is identified. These appear stable. Left renal cyst is again noted. Aorta and iliac vessels are heavily calcified but not aneurysmal. The small and large bowel loops are normal caliber on today's study, without evidence of obstruction. There is diverticulosis of the sigmoid colon. There does appear to be mild wall thickening and perisigmoidal inflammatory changes in the midline of the pelvis suggestive of mild acute diverticulitis. No abscess formation is seen. The bladder is unremarkable. IMPRESSION: Findings suggestive of mild sigmoid diverticulitis without evidence of abscess formation or bowel obstruction. Dictated by: Dictated on workstation # [id number]
== END ==
LOC: RAD 10:42
PROVIDERS: ATTEND Family Medicine
DX: R10.9 Unspecified abdominal pain (principal); R30.0 Dysuria; Z87.19 Personal history of other diseases of the digestive system
CPT/HCPCS: 74177

== ENCOUNTER → 2020-06-28 | Outpatient (CLI) | payer MEDICARE ==
[~2020-06-28] MED LIST changes: +AMLO-250 PO; -AMLO5TAB7 PO; +CATHETER FLUSH 10 ML SYR IV PRN; +HOLD METFORMIN - RECEIVED CONTRAST 20 ML VIAL IV SCH; +LISI1TAB46 PO; -LISI1TAB8 PO; +NS 100 ML (IVPB) BAG IV ONE; -NS 250 ML (IVPB) BAG IV ONE
[2020-06-28 15:07] LABS: CREATININE SERUM 0.86 MG/DL (0.60-1.30); GFR ESTIMATED > 60
[2020-06-28 15:08] LABS: BUN/CREATININE RATIO 16
--- NOTE | 2020-06-28 15:50 | Diagnostic Imaging Report ---
PROCEDURE: CT abdomen and pelvis with contrast. TECHNIQUE: Multiple contiguous axial images were obtained through the abdomen and pelvis after administration of intravenous contrast. Auto Exposure Controls were utilized during the CT exam to meet ALARA standards for radiation dose reduction. All CT scans use one or more of the following dose optimizing techniques: automated exposure control, MA and/or KvP adjustment based on patient size and exam type or iterative reconstruction. INDICATION: Right lower quadrant abdominal bulge. CORRELATION is made with prior CT from 10/17/2017. The lung bases are clear. The liver is unremarkable apart from a small low density in the right lobe peripherally measuring approximately 10 mm. This is similar to prior exam. The gallbladder is unremarkable. There is no biliary ductal dilatation. Pancreas and spleen are unremarkable apart from small low density in the lower anterior spleen, perhaps a small cyst. There is adrenal nodularity on the right which appears similar to prior exam. A large cyst in the left kidney measures approximately 6.4 cm compared with 5.7 cm. Right kidney is unremarkable. Aorta and iliac vessels are heavily calcified but nonaneurysmal. Postoperative changes to the anterior abdominal wall from hernia repair are noted. There is some bulging in the right paramidline abdomen which appears to contain some small bowel loops. It is difficult to ascertain whether there is actually a true defect within the abdominal wall postoperative material versus laxity. The bowel loops do not appear to be strangulated. There is no wall thickening. There is no evidence of bowel obstruction. No free fluid or fluid collection is seen. There is diverticulosis of the sigmoid but no evidence of acute diverticulitis. The bladder is unremarkable. IMPRESSION: 1. Right lower quadrant abdominal wall bulging appears to represent several small bowel loops bulging through a questionable abdominal wall defect versus abdominal wall laxity. There is no evidence of strangulation or bowel obstruction. 2. Uncomplicated diverticulosis. 3. Slight increase in size of left renal cyst. 4. Stable low-attenuation right lobe liver lesion. Dictated by: Dictated on workstation # [id number]
== END ==
LOC: RAD 14:34
PROVIDERS: ATTEND Family Medicine
DX: R19.03 Right lower quadrant abdominal swelling, mass and lump (principal); K57.30 Diverticulosis of large intestine without perforation or abscess without bleeding; N28.1 Cyst of kidney, acquired; K76.89 Other specified diseases of liver
CPT/HCPCS: 36415; 74177; 82565; 84520

== ENCOUNTER 2022-07-04 05:35 | Outpatient (CLI) | payer MEDICARE ==
[~2022-07-04] VITALS: Ht 157.5 cm; Wt 70.5 kg
[~2022-07-04 05:35] MED LIST changes: -CATHETER FLUSH 10 ML SYR IV PRN; -HOLD METFORMIN - RECEIVED CONTRAST 20 ML VIAL IV SCH; -IOHEXOL 350 MG/ML 100 ML (OMNIPAQUE 350) VIAL IV ONE; -MAGN250T2 PO; +MAGN250T31 PO; -NS 100 ML (IVPB) BAG IV ONE
[2022-07-04] MEDS ORDERED: HYDR25TA4 PO (16:40)
== END 2022-07-04 16:58 | disposition home or self-care (01) ==
LOC: PREOP 05:35
PROVIDERS: ATTEND Specialist
DX: Z01.818 Encounter for other preprocedural examination (principal)

== ENCOUNTER 2022-07-07 07:42 | Day surgery (SDC) | payer MEDICARE ==
[~2022-07-07] VITALS: Ht 157.5 cm; Wt 70.5 kg
[~2022-07-07 07:42] MED LIST changes: +HYDR25TA4 PO
[2022-07-07] MEDS ORDERED: POVIDONE (BETADINE) OPHTH SOLN 5% 30 ML OP ONE (08:30)
[2022-07-07] MEDS ORDERED: TIMOLOL 0.5% (CATARACTS) 0.3 ML BTL OU PRN (08:30)
[2022-07-07] MEDS ORDERED: MOXIFLOXACIN OPHTH SOLN 5 MG/ML 0.3 ML SYRINGE OP ONE (08:30)
[2022-07-07 08:31] VITALS: BP 184/71
[2022-07-07] MEDS: TETRACAINE 0.5% OPHTH SOLN 4 ML BTL (SINGLE DOSE ONLY) OU PRN ×4 (08:31→08:49)
[2022-07-07] MEDS: PHENYLEPHRINE 10% OPHTH (NEO-SYN) 5 ML BTL OU SCH ×3 (08:38→08:49)
[2022-07-07] MEDS: TROPICAMIDE 1% OPH SOLN (MYDRIACYL) 15 ML BTL OP SCH ×3 (08:38→08:49)
[2022-07-07] MEDS ORDERED: MIDAZOLAM 2 MG/2 ML (VERSED) VIAL ONE (09:01)
--- NOTE | 2022-07-07 09:10 | Ophthalmologist Pre-Op Note ---
Pre-Operative Progress Note H&P Reviewed The H&P was reviewed, patient examined and no changes noted. Date H&P Reviewed: Jul 07, 2022 Time H&P Reviewed: 09:10 Pre-Op Dx Cataract, Right Eye TERESO ONOFRE MD Jul 07, 2022 09:10
--- NOTE | 2022-07-07 09:28 | Ophthalmology Operative Report ---
Cataract removal/placement IOL PREOPERATIVE DIAGNOSIS: Cataract Right Eye POSTOPERATIVE DIAGNOSIS: Cataract Right Eye PROCEDURE: Cataract removal and placement of posterior chamber implant, right eye SURGEON: Panda Onofre ANESTHESIA: Topical with sedation COMPLICATIONS: None ESTIMATED BLOOD LOSS: Minimal DESCRIPTION OF PROCEDURE: After proper informed consent was obtained, the patient, a 86 female, was taken to the Operating Room and the right eye was anesthetized with tetracaine. The right eye was then prepped and draped in the usual manner. A wire lid speculum was placed. A paracentesis was made at the left hand position. Preservative free lidocaine was injected into the anterior chamber followed by viscoelastic. A clear corneal incision was made in the temporal position. A capsulorrhexis was preformed and the central nuclear and cortical material were removed. The posterior capsule was polished and Manolo 24.0 AU00T0 IOL was placed into the capsular bag. The residual viscoelastic was aspirated and balanced saline solution was injected into the anterior chamber. Moxifloxacin was injected into the anterior chamber. The wound was checked and found to be water tight. The patient tolerated the procedure well without complications. PANDA ONOFRE MD Jul 07, 2022 09:28
[2022-07-07 09:41] VITALS: BP 184/72
[2022-07-07] MEDS ORDERED: acetaZOLAMIDE ER 500 MG CAP (DIAMOX SEQUELS) PO ONE (11:00)
--- NOTE | 2022-07-07 13:27 | Anesthesia-General Post-Op ---
MAC Patient Condition Mental Status/LOC: Same as Preop Cardiovascular: Satisfactory Nausea/Vomiting: Absent Respiratory: Satisfactory Pain: Controlled Complications: Absent Post Op Complications Complications None Follow Up Care/Instructions Patient Instructions None needed. Anesthesiology Discharge Order Discharge Order Patient is doing well, no complaints, stable vital signs, no apparent adverse anesthesia problems. No complications reported per nursing. SHAWNA LOZANO CRNA Jul 07, 2022 13:27
== END 2022-07-07 09:47 | disposition home or self-care (01) ==
LOC: SDC 07:42
PROVIDERS: ATTEND Specialist
DX: H25.9 Unspecified age-related cataract (principal)
CPT/HCPCS: 66984; V2632

== ENCOUNTER 2022-07-18 05:36 | Outpatient (CLI) | payer MEDICARE | END 2022-07-18 10:11 | disposition home or self-care (01) | LOC: PREOP 05:36 | PROVIDERS: ATTEND Specialist | DX: Z01.818 Encounter for other preprocedural examination (principal) ==

== ENCOUNTER 2022-07-21 08:18 | Day surgery (SDC) | payer MEDICARE ==
[~2022-07-21] VITALS: Ht 157.5 cm; Wt 70.5 kg
[2022-07-21 08:15] VITALS: BP 181/80
[2022-07-21] MEDS: TETRACAINE 0.5% OPHTH SOLN 4 ML BTL (SINGLE DOSE ONLY) OU PRN ×4 (08:28→08:39)
[2022-07-21] MEDS ORDERED: MOXIFLOXACIN OPHTH SOLN 5 MG/ML 0.3 ML SYRINGE OP ONE (08:30)
[2022-07-21] MEDS ORDERED: TIMOLOL 0.5% (CATARACTS) 0.3 ML BTL OU PRN (08:30)
[2022-07-21] MEDS ORDERED: POVIDONE (BETADINE) OPHTH SOLN 5% 30 ML OP ONE (08:30)
[2022-07-21] MEDS: PHENYLEPHRINE 10% OPHTH (NEO-SYN) 5 ML BTL OU SCH ×3 (08:31→08:39)
[2022-07-21] MEDS: TROPICAMIDE 1% OPH SOLN (MYDRIACYL) 15 ML BTL OP SCH ×3 (08:31→08:39)
[2022-07-21] MEDS ORDERED: MIDAZOLAM 2 MG/2 ML (VERSED) VIAL ONE (09:03)
--- NOTE | 2022-07-21 09:11 | Ophthalmologist Pre-Op Note ---
Pre-Operative Progress Note H&P Reviewed The H&P was reviewed, patient examined and no changes noted. Date H&P Reviewed: Jul 21, 2022 Time H&P Reviewed: 09:11 Pre-Op Dx Cataract, Left Eye TERESO ONOFRE MD Jul 21, 2022 09:11
--- NOTE | 2022-07-21 09:31 | Ophthalmology Operative Report ---
Cataract removal/placement IOL PREOPERATIVE DIAGNOSIS: Cataract Left Eye POSTOPERATIVE DIAGNOSIS: Cataract Left Eye PROCEDURE: Cataract removal and placement of posterior chamber implant, left eye SURGEON: Panda Onofre ANESTHESIA: Topical with sedation COMPLICATIONS: None ESTIMATED BLOOD LOSS: Minimal DESCRIPTION OF PROCEDURE: After proper informed consent was obtained, the patient, a 86 female, was taken to the Operating Room and the left eye was anesthetized with tetracaine. The left eye was then prepped and draped in the usual manner. A wire lid speculum was placed. A paracentesis was made at the left hand position. Preservative free lidocaine was injected into the anterior chamber followed by viscoelastic. A clear corneal incision was made in the temporal position. A capsulorrhexis was preformed and the central nuclear and cortical material were removed. The posterior capsule was polished and an Manolo 24.0 AU00T0 was placed into the capsular bag. The residual viscoelastic was aspirated and balanced saline solution was injected into the anterior chamber. Moxifloxacin was injected into the anterior chamber. The wound was checked and found to be water tight. The patient tolerated the procedure well without complications. PANDA ONOFRE MD Jul 21, 2022 09:31
[2022-07-21 09:36] VITALS: BP 164/69
[2022-07-21] MEDS ORDERED: acetaZOLAMIDE ER 500 MG CAP (DIAMOX SEQUELS) PO ONE (11:00)
--- NOTE | 2022-07-21 13:41 | Anesthesia-General Post-Op ---
MAC Patient Condition Mental Status/LOC: Same as Preop Cardiovascular: Satisfactory Nausea/Vomiting: Absent Respiratory: Satisfactory Pain: Controlled Complications: Absent Post Op Complications Complications None Follow Up Care/Instructions Patient Instructions None needed. Anesthesiology Discharge Order Discharge Order Patient was doing well this morning after the procedure with no complaints, stable vital signs, no apparent adverse anesthesia problems. No complications reported per nursing. EDVIN HAYNES DO Jul 21, 2022 13:41
== END 2022-07-21 09:41 | disposition home or self-care (01) ==
LOC: SDC 08:18
PROVIDERS: ATTEND Specialist
DX: H25.9 Unspecified age-related cataract (principal)
CPT/HCPCS: 66984; V2632